=== PATIENT | male | born 1930 | race Caucasian/White ===

== ENCOUNTER 2017-03-18 20:15 | Emergency (ER) | payer MEDICARE ==
--- NOTE | 2017-03-18 21:07 | CT ---
CT HEAD WITHOUT CONTRAST: 03/18/17 Multiple axial tomograms are obtained through the head without IV enhancement. HISTORY: Fell with injury to back of head. Patient on blood thinners. Cortical atrophy consistent with age. Ventricles have normal size and position. No evidence of intrac ranial hemorrhage identified. There is no evidence of mass or infarct. IMPRESSION: No evidence of intracranial hemorrhage. POS: [facility]
[2017-03-18] MEDS ORDERED: Bacitracin Zinc 1 Packet ONE (21:10)
--- NOTE | 2017-03-18 21:12 | CT ---
CT CERVICAL SPINE: 03/18/17 Multiple axial tomograms obtained through the cervical spine with multiplanar reconstructions. HISTORY: Fall with injury to neck. Cervical vertebrae maintain height and alignment. Degenerative changes are seen in the mid cervical s pine. There is loss of disc space at C4-5, C5-6 and C6-7 and C7-T1. Hypertrophic changes are seen at these levels. Posterior spondylitic changes are prominent at C4-5, C5-6, and C6-7. No acute fracture identified. IMPRESSION: Degenerative changes of the cervical spine. No acute fracture identified. POS: [facility]
== END 2017-03-18 21:22 | disposition home or self-care (01) ==
LOC: NAV ERS 20:15
DX: S06.0X0A Concussion without loss of consciousness, initial encounter (principal); S00.01XA Abrasion of scalp, initial encounter; I48.91 Unspecified atrial fibrillation; I10 Essential (primary) hypertension; Z79.01 Long term (current) use of anticoagulants; W01.0XXA Fall on same level from slipping, tripping and stumbling without subsequent striking against object, initial encounter
CPT/HCPCS: 70450; 72125

== ENCOUNTER 2017-03-19 08:58 | Emergency (ER) | payer MEDICARE | END 2017-03-19 09:45 | disposition home or self-care (01) | LOC: NAV ERS 08:58 | DX: S01.01XA Laceration without foreign body of scalp, initial encounter (principal); S60.041A Contusion of right ring finger without damage to nail, initial encounter; I48.91 Unspecified atrial fibrillation; I10 Essential (primary) hypertension; Z79.899 Other long term (current) drug therapy; W19.XXXA Unspecified fall, initial encounter | CPT/HCPCS: 12002 ==